=== PATIENT | male | born 1970 | race Caucasian/White ===

== ENCOUNTER 2023-10-06 07:26 | Outpatient (OUT) | payer OTHER, SELFPAY ==
--- NOTE | 2023-10-06 | ECG_ITS ---
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
[2023-10-06 08:13] LABS: Hematocrit 42.2 % (42.0-54.0); Hemoglobin 13.9 g/dL (14.0-18.0); Mean Corpuscular HGB Conc 32.9 g/dL (29.9-35.2); Mean Corpuscular Hemoglobin 31.4 pg (25.9-34.0); Mean Corpuscular Volume 95.3 fL (80.0-94.0); Mean Platelet Volume 9.3 fL (9.5-13.5); Platelet Count 274 10^3/uL (150-450); Red Blood Count 4.43 10^6/uL (4.70-6.10); Red Cell Distribution Width 12.1 % (11.0-15.0)
[2023-10-06 09:26] LABS: Estimated Average Glucose 114 mg/dL; Glycohemoglobin A1C 5.6 % (4.5-6.2)
[2023-10-06 10:23] LABS: Alanine Aminotransferase 29 U/L (16-63); Albumin Globulin Ratio 0.9; Albumin Level 3.7 g/dL (3.4-5.0); Alkaline Phosphatase 59 U/L (46-116); Anion Gap 6.9; Aspartate Amino Transferase 18 U/L (15-37); BUN Creatinine Ratio 17.3; Bilirubin Total 0.6 mg/dL (0.2-1.0); Carbon Dioxide 33.1 mmol/L (21.0-32.0); Chloride 103 mmol/L (98-107); Estimated GFR (African America >60 (>=60); Estimated GFR (Non-African Ame >60 (>=60); Glucose 81 mg/dL (74-106); Sodium 139 mmol/L (136-145); Total Protein 7.7 g/dL (6.4-8.2)
== END 2023-10-06 07:27 | disposition home or self-care (01) ==
PROVIDERS: Family Provider Family Medicine
DX: R55 Syncope and collapse (principal)
CPT/HCPCS: 36415; 80053; 83036; 85027; 93005

== ENCOUNTER 2023-10-08 17:30 | Emergency (ER) | payer OTHER, SELFPAY ==
[2023-10-08 17:33] VITALS: BP 146/94; PULSE 59; RESP 18; TEMP 36.8; O2SAT 98; BMI 22.8
--- NOTE | 2023-10-08 18:08 | CT_ITS ---
The [address] [address] Patient Name: JOSE FONTENOT MRN: [id number] date: 1970 Sex: M Assigned Patient Location: ER Current Patient Location: Accession/Order Number: [id number] Exam Date: 10/08/2023 18:15 Report Date: 10/08/2023 18:54 At the request of: ANTONIO MCCOLLUM Procedure: CT head/brain wo con EXAM: CT head/brain wo con HISTORY: headache COMPARISON: None TECHNIQUE: Axial CT scans through the head were obtained without IV contrast administration. Dose reduction techniques were achieved by using: automated exposure control and/or adjustment of mA and /or kV according to patient size and/or use of iterative reconstruction technique. FINDINGS: There is no evidence of acute intracranial hemorrhage or abnormal extra-axial fluid collection. No mass effect or midline shift is seen. There is no evidence of large acute territorial infarction. There is no hydrocephalus. There are scattered foci of mild low-attenuation in supratentorial white matter, likely represents chronic microvascular ischemia. To the limit of CT, the posterior fossa appears unremarkable. No definite acute fracture is identified. Soft tissues are unremarkable. The visualized orbits show no abnormality. There is mild mucosal thickening and a possible layering fluid within the partially visualized left maxillary sinus. Mastoid air cells are clear. CT/CT head/brain wo con IMPRESSION: No CT evidence of acute intracranial abnormality. Mild chronic microvascular ischemia. Mild mucosal thickening and a possible layering fluid within the partially visualized left maxillary sinus. If there is clinical suspicion for acute sinus disease, recommend paranasal sinus CT for further evaluation. Electronically authenticated by: SHIRLEY UNLU Date: 10/08/2023 18:54
--- NOTE | 2023-10-08 18:08 | ECG_ITS ---
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
--- NOTE | 2023-10-08 18:09 | ED.GENADUL1 ---
HPI - General Adult General Chief complaint: Weakness Stated complaint: near syncope headache cramping Time Seen by Provider: 10/08/23 17:34 Source: patient Mode of arrival: walk-in Limitations: no limitations History of Present Illness HPI narrative: Patient developed headache this afternoon and had cramping of the jaw and other areas - like muscles cramping up . He took OTC meds for his headache and it is gone now. he gets left sided headaches regularly - never associated with nausea, photophobia, visual changes or other symptoms. Last week the patient was standing, while his was trimming his celaya, and he got dizzy. He sat down and felt better. He stood again and got dizzy but this second time when he sat he passed out. was present and said it lasted less than a minute and the patient vomited while passed out. No seizure activity or post-syncopal confusion. No chest pain, palpitations, headache, blurred vision, nausea or shortness of breath preceding the event. He saw his PCP and had out-patient EKG and blood tests - CBC and CMP. He was also referred to [facility] in [place] - he has an appointment Oct 19. Related Data Home Medications Medication Instructions Recorded Confirmed No Known Home Medications 10/08/23 10/08/23 Allergies Allergy/AdvReac Type Severity Reaction Status Date / Time No Known Drug Allergies Allergy Verified 10/08/23 17:37 [facility] Social History Smoking status: Former smoker Exam Narrative Exam Narrative: Nurses notes and vital signs reviewed and patient is not hypoxic. afebrile General: Well-appearing and in no apparent distress. Skin: Warm, dry, no pallor noted. Head: Normocephalic, atraumatic. Eye: Pupils are equal, round and EOMI. No scleral icterus. No nystagmus Ears, Nose, Mouth, and Throat: TM are clear, no posterior oropharynx erythema or nasal mucosal hypertrophy, uvula is mid-line Oral mucosa is moist Cardiovascular: Regular Rate and Rhythm without murmur, gallop or rub. Respiratory: No accessory muscle use or respiratory distress. Lungs are clear to auscultation, no wheezing, rales or rhonchi Musculoskeletal: normal ROM, no calf or popliteal tenderness, no lower extremity edema/swelling GI: Abdomen is soft, non-distended. Normal bowel sounds. No tenderness to palpation. No rebound, guarding, or rigidity noted. Neurological: A&O x4. No cranial nerve dysfunction observed. No truncal ataxia. Moves all extremities. Sensation intact. Psychiatric: Cooperative and interactive. Normal mood and affect. Constitutional Vital Signs, click to edit/add: Last Vital Signs Temp 98.3 F 10/08/23 17:33 Pulse 59 L 10/08/23 17:33 Resp 18 10/08/23 17:33 BP 146/94 H 10/08/23 17:33 Pulse Ox 98 10/08/23 17:33 O2 Del Method Room Air 10/08/23 17:33 Course Vital Signs Vital signs: Vital Signs Temperature 98.3 F 10/08/23 17:33 Pulse Rate 59 L 10/08/23 17:33 Respiratory Rate 18 10/08/23 17:33 Blood Pressure 146/94 H 10/08/23 17:33 Pulse Oximetry 98 10/08/23 17:33 Oxygen Delivery Method Room Air 10/08/23 17:33 Temperature 98.3 F 10/08/23 17:33 Pulse Rate 59 L 10/08/23 17:33 Respiratory Rate 18 10/08/23 17:33 Blood Pressure 146/94 H 10/08/23 17:33 Pulse Oximetry 98 10/08/23 17:33 Oxygen Delivery Method Room Air 10/08/23 17:33 Medical Decision Making MDM Narrative Medical decision making narrative: Patient was placed on quality assurance monitor and EKG obtained. Blood drawn and sent for evaluation. He was sent for CT head. His headache already resolved. EKG normal. Head CT shows chronic changes but no acute abnormalities. Normal blood tests as well, as on 10/06/23. Patient informed of results. Recommend Neuro follow up as scheduled. PCP follow up as well. Encouraged patient to take OTC meds for pain. Discussed proper nutrition and hydration. Medical Records Medical records reviewed: Yes I reviewed the patient's medical records Medical records narrative: 2 days ago the patient had blood drawn. CBC and CMP were unremarkable. Lab Data Lab results reviewed: Yes I reviewed the patient's lab results Labs: Lab Results 10/08/23 Range/Units 17:45 WBC 5.3 (4.0-11.0) 10^3/uL RBC 4.27 L (4.70-6.10) 10^6/uL Hgb 13.7 L (14.0-18.0) g/dL Hct 40.2 L (42.0-54.0) % MCV 94.1 H (80.0-94.0) fL MCH 32.1 (25.9-34.0) pg MCHC 34.1 (29.9-35.2) g/dL RDW 12.0 (11.0-15.0) % Plt Count 276 (150-450) 10^3/uL MPV 9.3 L (9.5-13.5) fL Neut % (Auto) 49.9 (43.0-75.0) % Lymph % (Auto) 36.0 (20.5-60.0) % Glascock % (Auto) 11.2 (1.7-12.0) % Eos % (Auto) 2.1 (0.9-7.0) % Baso % (Auto) 0.6 (0.2-2.0) % Neut # (Auto) 2.7 (1.4-6.5) 10^3/uL Lymph # (Auto) 1.9 (1.2-3.8) 10^3/uL Glascock # (Auto) 0.6 (0.3-0.8) 10^3/uL Eos # (Auto) 0.1 (0.0-0.7) 10^3/uL Baso # (Auto) 0.0 (0.0-0.1) 10^3/uL Abs Immat Gran (auto) 0.01 (0.00-0.03) 10^3/uL Imm/Tot Granulo (auto) 0.2 (0.0-0.5) % Sodium 140 (136-145) mmol/L Potassium 3.8 (3.5-5.1) mmol/L Chloride 103 (98-107) mmol/L Carbon Dioxide 30.2 (21.0-32.0) mmol/L Anion Gap 10.6 BUN 17.0 (7.0-18.0) mg/dL Creatinine 1.12 (0.70-1.30) mg/dL Est GFR ( Amer) >60 (>=60) Est GFR (Non-Af Amer) >60 (>=60) BUN/Creatinine Ratio 15.2 Glucose 125 H (74-106) mg/dL Calcium 8.9 (8.5-10.1) mg/dL Total Bilirubin 0.3 (0.2-1.0) mg/dL AST 17 (15-37) U/L ALT 27 (16-63) U/L Alkaline Phosphatase 63 (46-116) U/L Total Protein 7.5 (6.4-8.2) g/dL Albumin 3.9 (3.4-5.0) g/dL Globulin 3.6 g/dL Albumin/Globulin Ratio 1.[address] scan - head: Radiologist's impression: ITS Impressions Head CT 10/08/23 18:08 IMPRESSION: No CT evidence of acute intracranial abnormality. Mild chronic microvascular ischemia. Mild mucosal thickening and a possible layering fluid within the partially visualized left maxillary sinus. If there is clinical suspicion for acute sinus disease, recommend paranasal sinus CT for further evaluation. Electronically authenticated by: SHIRLEY GUTIERREZ Date: 10/08/2023 18:54 ECG Data Attestation: I personally reviewed and interpreted this ECG as follows: Interpretation: EKG interpretation: Emergency Department physician interpretation. Normal sinus rhythm at 58bpm. Normal axis, normal intervals and no ST segment elevation or depression. Normal EKG. Discharge Plan Discharge Chief Complaint: Weakness Clinical Impression: Myalgia, Headache Patient Disposition: Home, Self-Care Time of Disposition Decision: 19:02 Prescriptions / Home Meds: No Action No Known Home Medications Instructions: Syncope (ED), Acute Headache (ED) Stand Alone Forms: Portal Instructions Referrals: Physician,Non-Staff, MD [Primary Care Provider] - 1 week
[2023-10-08 18:16] LABS: Basophils Percent Auto 0.6 % (0.2-2.0); Eosinophils Absolute Auto 0.1 10^3/uL (0.0-0.7); Eosinophils Percent Auto 2.1 % (0.9-7.0); Hematocrit 40.2 % (42.0-54.0); Hemoglobin 13.7 g/dL (14.0-18.0); Immature Granulocytes Abs Auto 0.01 10^3/uL (0.00-0.03); Immature Granulocytes Pct Auto 0.2 % (0.0-0.5); Lymphocytes Absolute Auto 1.9 10^3/uL (1.2-3.8); Mean Corpuscular HGB Conc 34.1 g/dL (29.9-35.2); Mean Corpuscular Hemoglobin 32.1 pg (25.9-34.0); Mean Corpuscular Volume 94.1 fL (80.0-94.0); Mean Platelet Volume 9.3 fL (9.5-13.5); Monocytes Absolute Auto 0.6 10^3/uL (0.3-0.8); Monocytes Percent Auto 11.2 % (1.7-12.0); Neutrophils Absolute Auto 2.7 10^3/uL (1.4-6.5); Neutrophils Percent Auto 49.9 % (43.0-75.0); Platelet Count 276 10^3/uL (150-450); Red Blood Count 4.27 10^6/uL (4.70-6.10); White Blood Count 5.3 10^3/uL (4.0-11.0)
[2023-10-08 18:30] LABS: Alanine Aminotransferase 27 U/L (16-63); Albumin Globulin Ratio 1.1; Albumin Level 3.9 g/dL (3.4-5.0); Alkaline Phosphatase 63 U/L (46-116); Anion Gap 10.6; Aspartate Amino Transferase 17 U/L (15-37); BUN Creatinine Ratio 15.2; Bilirubin Total 0.3 mg/dL (0.2-1.0); Calcium 8.9 mg/dL (8.5-10.1); Carbon Dioxide 30.2 mmol/L (21.0-32.0); Chloride 103 mmol/L (98-107); Estimated GFR (African America >60 (>=60); Estimated GFR (Non-African Ame >60 (>=60); Globulin 3.6 g/dL; Glucose 125 mg/dL (74-106); Potassium 3.8 mmol/L (3.5-5.1); Sodium 140 mmol/L (136-145); Total Protein 7.5 g/dL (6.4-8.2)
== END 2023-10-08 19:27 | disposition home or self-care (01) ==
PROVIDERS: Emergency Provider Emergency Medicine; Family Provider Family Medicine
DX: R51.9 Headache, unspecified (principal); M79.10 Myalgia, unspecified site; Z87.891 Personal history of nicotine dependence
CPT/HCPCS: 36415; 70450; 80053; 85025; 93005; 99285

== ENCOUNTER 2023-10-13 17:45 | Outpatient (OUT) | payer OTHER, SELFPAY ==
--- NOTE | 2023-10-13 | US_ITS ---
[address] [address] Patient Name: JOSE FONTENOT MRN: [id number] date: 1970 Sex: M Assigned Patient Location: Current Patient Location: Accession/Order Number: [id number] Exam Date: 10/13/2023 18:20 Report Date: 10/14/2023 04:59 At the request of: NICK ROJO Procedure: US carotid duplex BI EXAMINATION: US carotid duplex BI HISTORY: syncope R55 COMPARISON: No relevant comparison available. TECHNIQUE: Duplex Doppler ultrasound analysis of carotid and vertebral arteries. . Bilateral carotid arterial duplex examination was performed using B-mode, color flow and spectral analysis. Carotid stenosis is reported according to validated velocity parameters, similar to NASCET criteria. FINDINGS: RIGHT CAROTID ARTERY: Mild plaque without significant stenosis. RIGHT VERTEBRAL: Antegrade flow. Subclavian: PSV: 117.8 cm/s EDV: 11.1 cm/s CCA: Prox: PSV: 83.8 cm/s EDV: 11.1 cm/s Mid: PSV: 87.1 cm/s EDV: 22.4 cm/s Distal: PSV: 79.0 cm/s EDV: 30.5 cm/s BULB: PSV: 68.5 cm/s EDV: 21.9 cm/s ICA: Prox: PSV: 68.5 cm/s EDV: 27.0 cm/s Mid: PSV: 78.8 cm/s EDV: 34.8 cm/s Distal: PSV: 73.6 cm/s EDV: 33.5 cm/s ECA: PSV: 84.0 cm/s EDV: 11.5 cm/s VERTEBRAL: PSV: 34.8 cm/s EDV: 12.0 cm/s ICA/CCA ratio: PSV: 0.9 EDV: 1.6 LEFT CAROTID ARTERY: Mild plaque without significant stenosis. LEFT VERTEBRAL: Antegrade flow. Subclavian: PSV: 106.4 cm/s EDV: 0.0 cm/s CCA: Prox: PSV: 88.7 cm/s EDV: 25.7 cm/s Mid: PSV: 106.4 cm/s EDV: 32.1 cm/s Distal: PSV: 91.9 cm/s EDV: 25.7 cm/s BULB: PSV: 80.6 cm/s EDV: 33.7 cm/s ICA: Prox: PSV: 62.5 cm/s EDV: 26.5 cm/s Mid: PSV: 79.8 cm/s EDV: 37.5 cm/s Distal: PSV: 93.9 cm/s EDV: 45.3 cm/s ECA: PSV: 90.7 cm/s EDV: 15.5 cm/s VERTEBRAL: PSV: 36.2 cm/s EDV: 12.7 cm/s ICA/CCA ratio: PSV: 0.9 EDV: 1.4 US/US carotid duplex BI IMPRESSION: 1. 0-49% flow stenosis within the right left carotid arteries. 2. Mild atherosclerotic disease. Electronically authenticated by: NEWTON QUINN Date: 10/14/2023 04:59
== END 2023-10-13 17:46 | disposition home or self-care (01) ==
LOC: US 17:46
PROVIDERS: Family Provider Family Medicine; PCP Family Medicine; Visit Provider Family Medicine
DX: R55 Syncope and collapse (principal)
CPT/HCPCS: 93880

== ENCOUNTER 2024-04-22 16:06 | Outpatient (OUT) | payer OTHER, SELFPAY ==
[2024-04-22 16:17] LABS: Hematocrit 41.1 % (42.0-54.0); Hemoglobin 14.1 g/dL (14.0-18.0); Mean Corpuscular HGB Conc 34.3 g/dL (29.9-35.2); Mean Corpuscular Volume 93.4 fL (80.0-94.0); Mean Platelet Volume 9.2 fL (9.5-13.5); Platelet Count 248 10^3/uL (150-450); Red Cell Distribution Width 12.3 % (11.0-15.0); White Blood Count 6.2 10^3/uL (4.0-11.0)
[2024-04-22 16:42] LABS: Alanine Aminotransferase 27 U/L (16-63); Albumin Globulin Ratio 1.2; Alkaline Phosphatase 73 U/L (46-116); Anion Gap 10.1; Aspartate Amino Transferase 17 U/L (15-37); BUN Creatinine Ratio 9.6; Bilirubin Total 0.9 mg/dL (0.2-1.0); Calcium 9.1 mg/dL (8.5-10.1); Carbon Dioxide 30.7 mmol/L (21.0-32.0); Chloride 97 mmol/L (98-107); Chol HDL Ratio 3.4; Cholesterol 261 mg/dL (<=200); Estimated GFR (African America >60 (>=60); Estimated GFR (Non-African Ame >60 (>=60); Globulin 3.4 g/dL; Glucose 79 mg/dL (74-106); HDL Cholesterol 77 mg/dL (40-60); Potassium 3.8 mmol/L (3.5-5.1); Sodium 134 mmol/L (136-145); Total Protein 7.4 g/dL (6.4-8.2); Triglycerides 69 mg/dL (<=150); VLDL CHOLESTEROL 13.8 mg/dL
== END 2024-04-22 16:07 | disposition home or self-care (01) ==
LOC: LAB 16:06
PROVIDERS: Family Provider Family Medicine; PCP Nurse Practitioner; Visit Provider Nurse Practitioner
DX: I10 Essential (primary) hypertension (principal); Z13.6 Encounter for screening for cardiovascular disorders
CPT/HCPCS: 36415; 80053; 80061; 85027

== ENCOUNTER 2025-06-17 09:50 | Outpatient (OUT) | payer OTHER, SELFPAY ==
--- OUTSIDE RECORDS SUMMARY | 2024-10-31 13:15 | XMS_ITS ---
Author Organization [facility] vices Address [address] [place], [place] [id number] Care Team Providers Care Demographer Name Role Phone Kassandra Miller Primary Care Provider REASON FOR VISIT 6 mo HTN Social History Sex Assigned At : Social History Observation Description Sex Assigned At Male Encounters Encounter Location Date Provider Diagnosis Main [address] [place], [place] [id number] 10/31/2024 Kassandra Miller Plan Of Treatment Next Appt Details Provider Name:Kassandra espinoza, 12/11/2025 06:00:00 PM, [address] [place], [id number], Progress Notes * Ga BLACKMONDOB:1970 ([age] yo M)Acc No.[id number]:10/31/2024 Medical Note Patient: Ga JACK Provider: DENISE Bianchi :1970 A ge:54 Y S ex:Male Date:10/31/2024 Address:[address] [place] [id number] Subjective: * Chief Complaints: * 1 . 6 mo HTN. * Medical History: Objective: * Vitals: Assessment: Plan: * Treatment: * Billing Information: * Visit Code: * Procedure Codes: * Electronic signature of DENISE Oropeza on 06/17/2025 at 09:54 AM EDT Sign off status: Pending * Provider: DENISE Bianchi Date: 0 10/31/2024 Generated for Michael hernandez/Venkatesh/Dontrell on: 1 09:54 AM EDT
--- OUTSIDE RECORDS SUMMARY | 2025-05-04 12:15 | XMS_ITS ---
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 Bus Trolley Name Role Phone Kassandra Miller Primary Care Provider REASON FOR VISIT HTN Social History Sex Assigned At : Social History Observation Description Sex Assigned At Male Encounters Encounter Location Date Provider Diagnosis Main [address] [place], [place] [id number] 05/04/2025 Kassandra Miller Plan Of Treatment Next Appt Details Provider Name:Kassandra espinoza, 12/11/2025 06:00:00 PM, [address], [phone], Progress Notes * Ga BLACKMONDOB:1970 ([age] yo M)Acc No.[id number]:05/04/2025 Medical Note Patient: Ga JACK Provider: DENISE Bianchi :1970 A ge:54 Y S ex:Male Date:05/04/2025 Address:[address] [place] [id number] Subjective: * Chief Complaints: * 1 . HTN. * Medical History: Objective: * Vitals: Assessment: Plan: * Treatment: * Billing Information: * Visit Code: * Procedure Codes: * Electronic signature of DENISE Oropeza on 06/17/2025 at 09:54 AM EDT Sign off status: Pending * Provider: DENISE Bianchi Date: 0 05/04/2025 Generated for Michael hernandez/Venkatesh/Dontrell on: 1 09:54 AM EDT
--- OUTSIDE RECORDS SUMMARY | 2025-06-12 14:00 | XMS_ITS ---
Author Organization [facility] vices Address [address] [place] [place] [id number] Care Team Providers Care Solid State Tester Name Role Phone Kassandra Miller Primary Care Provider Allergies No Known Allergies REASON FOR VISIT HTN Medications Medication SIG (Take, Route, Fr equency, Duration) Notes Start Date End Date Status Fish Oil 1000 MG 1 capsule Orally once daily Active Lisinopril 5 MG 1 tablet Orally Once a day; Duration: 90 days Active Social History Sex Assigned At : Social History Observation Description Sex Assigned At Male Vital Signs Temperature 98.0 degrees Fahrenheit 06/12/20 25 Weight 163 lbs 06/12/2025 Height 71 in 06/12/2025 BMI 22.73 kg/m2 06/12/2025 Blood pressure systolic 125 mm Hg 06/12/20 25 Blood pressure diastolic 73 mm Hg 025 Heart Rate 87 /min 06/12/2025 Respiratory Rate 18 /min 06/12/2025 Oximetry 97 % 06/12/2025 Weight-kg 73.94 kg 06/12/2025 Height-cm 180.34 cm 06/12/2025 Chris Das 025 05:52:01 PM EDT > Encounters Encounter Location Date Provider Diagnosis Main [address] [place] [id number] 06/12/2025 Kassandra Miller Essential hyperten zuleyma I10 ; BMI 22.0-22.9, adult Z68.22 and Screening for prostate cancer Z12.5 Assessments Encounter Date Diagnosis (ICD Code) Assessment Notes Treatment Notes Treatment Clinical Notes Section Notes 06/12/2025 Essential hypertension (ICD-10 - I10) HTN stable. Will continue current medications. Encouraged healthy diet and exercise. F/u 6 months & PRN 06/12/2025 BMI 22.0-22.9, adult (ICD-10 - Z68.22) 06/12/2025 Screening for prostate cancer (ICD-10 - Z12.5) Plan Of Treatment Treatment Notes Assessment Notes Essential hypertension HTN stable. Will continue current medications. Encouraged healthy diet and exercise. F/u 6 months & PRN Pending Test Test Name Order Date LIPID PANEL WITH REFLEX TO DIRECT LDL COMPREHENSIVE METABOLIC PANEL WITH GFR 0 06/12/2025 PSA, TOTAL, 3RD GENERATION ([facility] SCREEN) 0 06/12/2025 Next Appt Details Follow Up: 6 Months,prn, [place] son: f/u HTN Provider Name:Kassandra espinoza, 12/11/2025 06:00:00 PM, [address] [place] [address], [phone], Progress Notes * Ga BLACKMONDOB:1970 ([age] yo M)Acc No.[id number]:06/12/2025 Medical Note Patient: Ga JACK Provider: DENISE Bianchi :1970 A ge:55 Y S ex:Male Date:06/12/2025 Address:[address] [place], [place] [id number] Check In:05:47 PM EST Subjective: * Chief Complaints: * H [place] * HPI: H ypertension: Patient presents for follow-up of hypertension w hich was diagnosed years ago. Does not check BP outside the office. Denies chest pain, SOB, palpitations. * ROS: S ee HPI. * Medical History: * Surgical History: D enies Past Surgical History * Hospitalization/Major Diagno stic Procedure: Bowel Infection 09/1976 * Family History: F ather: . M other: , diagnosed with Hypertension, Diabetes. P aternal Grand Father: . P aternal Grand Mother: . M aternal Grand Father: . Maternal Grand Mother: , diagnosed with Heart Disease. B rother: alive. S ister: alive, diagnosed with Hypertension, Cancer. 1 brother(s) , 3 sister(s) . 1 son(s) , 2 daughter(s) - healthy. . Sister dx breast cancer. * Medications: T akingFish Oil 1000 MG Capsule 1 capsule Orally once daily Lisinopril 5 MG Tablet 1 tablet Orally Once a day Medication List reviewed and reconciled with the patientTaking Fish Oil 1000 MG Capsule 1 capsule Orally once daily Taking Lisinopril 5 MG Tablet 1 tablet Orally Once a day Medication List reviewed and reconciled with the patient * Allergies: N .K.D.A.no[Allergies Verified] Objective: * Vitals: T emp:98.0F, Wt:163lbs, Ht: 71 in, BMI:22.73Index, BP:125/73mm Hg, HR:87/min, RR:18/min, Pain scale:01-10, Oxygen sat %:97%, Wt-k.94 kg, Ht-cm: 180.34 cm, Body Surface Area: 1.92. Chris Das 06/12/2025 05:52:01 PM EDT >. * Examination: C QM Exceptions: Currently taking Aspirin: A spirin Use: N o G eneral Examination: General appearance: a lert, pleasant, well-nourished and in no acute distress. Heart: r egular rate and rhythm without murmurs, gallops, clicks or rubs. Lungs: c lear to auscultation bilaterally, with good air movement and no rales, rhonchi or wheezes. Abdomen: s oft with good bowel sounds, nontender, and no masses or hepatosplenomegaly. Psych: a lert and oriented x 3. Assessment: * Assessment: 1. E ssential hypertension - I10 (Primary) 2 . B UT 22.0-22.9, adult - Z68.22 3 . S creening for prostate cancer - Z12.5 Plan: * Treatment: 2. S creening for prostate cancer L AB: PSA, TOTAL, 3RD GENERATION ([facility] SCREEN) * Procedure Codes: 3 078F HTN DIAST BP < 320693O HTN SYST BP < 130 * Preventive Medicine: Counseling: C ommunication to patient: Counseling for nutrition provided Y es Counseling for physical activity provided Y es * Follow Up: 6 Months,prn (Reason: f/u HTN) * Billing Information: * Visit Code: 58951 Office Visit Est 20-29 minutes. * Procedure Codes: 3078F HTN DIAST BP < 80. 3074F HTN SYST BP < 130. * Sign off status: Completed true * Provider: DENISE Bianchi Date: 0 06/12/2025 Generated for Michael hernandez/Venkatesh/Jsitting on: 1 09:53 AM EDT History and Physical Notes * HPI (History of Present Illness) Category Sub-Category Detail Notes Category Not es Hypertension Patient presents for follow-up of hypertension which was diagnosed years ago Does not check BP outside the office. Denies chest pain, SOB, palpitations Examination Category Sub-Category Detail Notes Category Not es General Examination General appearance: alert, p leasant, well-nourished and in no acute distress Heart: regular rate and rhy thm without murmurs, gallops, clicks or rubs Lungs: clear to auscultatio n bilaterally, with good air movement and no rales, rhonchi or wheezes Abdomen: soft with good bowel sounds, nontender, and no masses or hepatosplenomegaly Psych: alert and oriented x 3 CQM Exceptions Currently taking Aspirin: Aspirin Use:: No
--- OUTSIDE RECORDS SUMMARY | 2025-06-17 09:54 | XMS_ITS | Clinical Summary ---
Author Organization [facility] Address [id number] [address] [place] [address] Care Team Providers Care Door Clamper Name Role Phone Dagoberto Melendrez MD Primary Care Provider [phone] Allergies No known active allergies Medications No known medications Active Problems Problem Noted Date Diagnosed Date Encounter for screening colonoscopy 07/08/2018 Family History Medical History Relation Name Comments No Known Problems Brother Colon cancer Father Parkinsonism Father Thyroid disease Father Heart disease Mother Hyperlipidemia Mother Hypertension Mother Kidney cancer Mother Skin cancer Mother No Known Problems Sister 1 No Known Problems Sister 2 No Known Problems Sister 3 Relation Name Status Comments Brother Alive Father (Age 88) Mother (Age 82) Sister 1 Alive Sister 2 Alive Sister 3 Alive Social History Tobacco Use Types Packs/Day Years Used Date Smoking Tobacco: Former Cigarettes 1 4 1 985 - 1988 Smokeless Tobacco: Never Alcohol Use Standard Drinks/Week Comments Yes 24 (1 standard drink = 0.6 oz pu re alcohol) Childcare Answer Date Recorded Childcare Unknown 02/23/2019 Employment Answer Date Recorded Employment Unknown 02/23/2019 Purpose - Life Answer Date Recorded Purpose and direction in life Unknown Sex and Gender Information Value Date Recorded Sex Assigned at Not on file Legal Sex Male 11:26 AM EDT Gender Identity Not on file Sexual Orientation Not on file Last Filed Vital Signs Vital Sign Reading Time Taken Comments Blood Pressure 104/62 07/16/2018 11:05 AM EDT Pulse 64 07/16/2018 11:05 AM EDT Temperature 36.4 C (97.5 F) 07/16/2018 10:03 AM EDT Respiratory Rate 18 07/16/2018 11:05 AM EDT Oxygen Saturation 97% 07/16/2018 11:05 AM EDT Inhaled Oxygen Concentration - - Weight 71.7 kg (158 lb) 07/16/2018 10:03 AM EDT Height 177.8 cm (5' 10 ) 07/16/2018 10:03 AM EDT Body Mass Index 22.67 07/16/2018 10:03 AM EDT Plan of Treatment Health Maintenance Due Date Last Done Comments Depression Screening 1980 Tobacco Screening 1980 Adult BMI Screening 1986 DTaP,Tdap and Td Vaccines (1 - Tdap) 1987 Zoster (Shingles) Vaccine (1 of 2) 2018 Influenza Vaccine 05/15/2025 Medical Devices Not on file Insurance [employer] Care Teams Door Clamper Relationship Specialty Start Date End Date Dagoberto Melendrez MD [address] [place] [address] PCP - General Family Medicine 06/28/18
--- OUTSIDE RECORDS SUMMARY | 2025-06-17 09:54 | XMS_ITS | Patient Health Record ---
Author Organization [facility] Address [address] [place], [place] [id number] Care Team Providers Care Vice President Safety Name Role Phone Tristonluz maria Kassandra Primary Care Provider Allergies No Known Allergies Reason For Referral No Information Medications Medication SIG (Take, Route, Fr equency, Duration) Notes Start Date End Date Status Fish Oil 1000 MG 1 capsule Orally once daily Active Lisinopril 5 MG 1 tablet Orally Once a day; Duration: 90 days Active Social History Tobacco Use: Social History Observation Description Date Details (start date - stop date) Never Smoker NA - NA Sex Assigned At : Social History Observation Description Sex Assigned At Male Tobacco Use/Smoking Question Answer Notes Tobacco use: nonsmoker patient enter ed data CAGE-AID Questionnaire (2018 Edition) Question Answer Notes Have you ever felt that you ought to cut down on your drinking or drug use? No patient entered data Have people annoyed you by c riticizing your drinking or drug use? No patient entered data Have you ever felt bad or gu ilty about your drinking or drug use? No patient entered data Have you ever had a drink or used drugs first thing in the morning to steady your nerves or to get rid of a hangover? No patient entered data CAGE-AID Score 0 Interpretation Negative PRAPARE Question Answer Notes Date Completed/Updated: 10/27/2024 diandra nt entered data What is your current housing situation? I have housing patient entered data Are you worried about losing your housing? No patient entered data What is the highest level of school that you have finished? 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 Check all that apply I do not have problems meeting my needs Has lack of transportation k ept you from medical appointments, meetings, work or from getting things needed for daily living? No How often do you see or talk to people that you care about and feel close to? (For example: talking to friends on the phone, visiting friends or family, going to restoration or club meetings) More than 5 times a week patient entered data How stressed are you? Stress is when someone feels tense, nervous, anxious, or can't sleep at night because their mind is troubled Not at all patient entered data In the past year have you sp ent more than 2 nights in a row in a group home, penitentiary, fpc center, or juvenile correctional facility? No patient entered willaims a Are you a refugee? No patient en tered data What country are you from? [place] pa tient entered data Do you feel physically and emotionally safe where you currently live? Yes patient entered data In the past year, have you b een afraid of your partner or ex-partner? No patient entered data PRAPARE Score: 0 Problems Problem Type SNOMED Code ICD Code Onset Dates Problem Status W/U Status Risk Notes Problem Essential hypertension (71794535) Essential hypertension (I10) Active confirmed Vital Signs Heart Rate 87 /min 06/12/2025 Daquan Das 06/12/2025 05:52:01 PM EDT > Temperature 98.0 degrees Fahrenheit 06/12/2025 Chris Coleman 06/12/2025 05:52:01 PM EDT > Respiratory Rate 18 /min 06/12/2025 Chris Das 06/12/2025 05:52:01 PM EDT > Oximetry 97 % 06/12/2025 Daquan Das 06/12/2025 05:52:01 PM EDT > Blood pressure diastolic 73 mm Hg 06/12/2025 Gregoria doneris, Chris 06/12/2025 05:52:01 PM EDT > Height-cm 180.34 cm 06/12/2025 Das, Daquan vando 06/12/2025 05:52:01 PM EDT > Weight-kg 73.94 kg 06/12/2025 Das, Ser vando 06/12/2025 05:52:01 PM EDT > Height 71 in 06/12/2025 Das, Ser vando 06/12/2025 05:52:01 PM EDT > Blood pressure systolic 125 mm Hg 06/12/2025 Vald ovsilke, Chris 06/12/2025 05:52:01 PM EDT > Weight 163 lbs 06/12/2025 Das, Daquan vando 06/12/2025 05:52:01 PM EDT > BMI 22.73 kg/m2 06/12/2025 Das, Daquan vando 06/12/2025 05:52:01 PM EDT > Encounters Encounter Location Date Provider Diagnosis Main [address] [place], [place] [id number] 10/27/2024 Kassandra Myerholtz Essential hyperten zuleyma I10 and BMI 23.0-23.9, adult Z68.23 [address] [place], [place] [id number] 06/12/2025 Kassandra Myerholtz Essential hyperten zuleyma I10 ; BMI 22.0-22.9, adult Z68.22 and Screening for prostate cancer Z12.5 [address] [place], [place] [id number] 10/06/2024 Kassandra Myerholtz Essential hyperten zuleyma I10 [address] [place], [place] [id number] 05/04/2025 Kassandra Myerholtz Assessments Encounter Date Diagnosis (ICD Code) Assessment Notes Treatment Notes Treatment Clinical Notes Section Notes 10/06/2024 Essential hypertension (ICD-10 - I10) 10/27/2024 Essential hypertension (ICD-10 - I10) HTN stable. Will continue current medications. Encouraged healthy diet and exercise. F/u 6 months & PRN 06/12/2025 Essential hypertension (ICD-10 - I10) HTN stable. Will continue current medications. Encouraged healthy diet and exercise. F/u 6 months & PRN 06/12/2025 BMI 22.0-22.9, adult (ICD-10 - Z68.22) 06/12/2025 Screening for prostate cancer (ICD-10 - Z12.5) 10/27/2024 BMI 23.0-23.9, adult (ICD-10 - Z68.23) Body Mass Index: Care Instructions material was published Plan Of Treatment Pending Test Test Name Order Date LIPID PANEL WITH REFLEX TO DIRECT LDL COMPREHENSIVE METABOLIC PANEL WITH GFR 0 06/12/2025 PSA, TOTAL, 3RD GENERATION ([facility] SCREEN) 0 06/12/2025 Next Appt Details Provider Name:Kassandra espinoza, 12/11/2025 06:00:00 PM, [address] [place], [place], [id number], Insurance Providers Payer Name Payer Address Payer Phone Subscriber Number Group Number Insured Name Patient Relationship to Insured Coverage Start Date Coverage End Date Medical [place] [address] [place] [phone] [id number] Ga Blackmon Self - patient is the insured Medical (General) History Medical History History ICD Code Essential hypertension I10 Hospitalization History Reason Date(Month/Year) Bowel Infection 09/1976
--- OUTSIDE RECORDS SUMMARY | 2025-06-17 09:54 | XMS_ITS | Clinical Summary ---
Author Organization [facility] Address [address] [place] [address] Care Team Providers Care Servicenow Administrator Name Role Phone Unavailable Primary Care Provider Unavailabl e Social History Tobacco Use Types Packs/Day Years Used Date Smoking Tobacco: Never Assessed Sex and Gender Information Value Date Recorded Sex Assigned at Not on file Legal Sex Male 7:35 PM EDT Gender Identity Not on file Sexual Orientation Not on file Last Filed Vital Signs Vital Sign Reading Time Taken Comments Blood Pressure 126/88 10/13/2019 12:00 PM EST Pulse - - Temperature - - Respiratory Rate - - Oxygen Saturation - - Inhaled Oxygen Concentration - - Weight 73.9 kg (163 lb) 10/13/2019 12:00 PM EST Height 177.8 cm (5' 10 ) 07/03/2020 12:00 PM EDT Body Mass Index 23.39 10/13/2019 12:00 PM EST Plan of Treatment Not on file
--- OUTSIDE RECORDS SUMMARY | 2025-06-17 09:54 | XMS_ITS | Encounter Summary ---
Author Organization [facility] Address [address] [place] [address] Phone Care Team Providers Care Set Rider Name Role Phone Unavailable Primary Care Provider Unavailabl e Encounter Details Date Type Department Care Team (Late st Contact Info) Description 10/19/2023 Scanned Document [facility] [address] [place] [id number] Scanning, Generic Provider Social History Tobacco Use Types Packs/Day Years Used Date Smoking Tobacco: Never Assessed Sex and Gender Information Value Date Recorded Sex Assigned at Male 10/22/2023 6:16 PM EST Legal Sex Unknown 10/19/2023 10:57 AM EST Gender Identity Male 10/22/2023 6:16 PM EST Sexual Orientation Straight 10/22/2023 6: 16 PM EST documented as of this encounter Plan of Treatment Not on file documented as of this encounter Visit Diagnoses Not on filedocumented in this encounter
--- OUTSIDE RECORDS SUMMARY | 2025-06-17 09:54 | XMS_ITS | Clinical Summary ---
Author Organization [facility] Address [address] [place] [address] Phone Care Team Providers Care Prosthetics Assistant Name Role Phone Unavailable Primary Care Provider Unavailabl e Social History Tobacco Use Types Packs/Day Years Used Date Smoking Tobacco: Never Assessed Sex and Gender Information Value Date Recorded Sex Assigned at Male 10/22/2023 6:16 PM EST Legal Sex Unknown 10/19/2023 10:57 AM EST Gender Identity Male 10/22/2023 6:16 PM EST Sexual Orientation Straight 10/22/2023 6: 16 PM EST Plan of Treatment Health Maintenance Due Date Last Done Comments CT Colonography 1968 Colonoscopy 1968 Colorectal Cancer Screening 1968 FIT-DNA (Cologuard) 1968 FIT 1968 HIV Screening 1968 Lipid Panel 1968 Sigmoidoscopy 1968 Yearly Adult Physical 1968 MMR Vaccines (1 of 1 - Stand nadir series) 1969 Hepatitis C Screening 1986 Hepatitis B Vaccines (1 of 3 - 19+ 3-dose series) 1987 Cervical Cancer Screening 1989 HPV/Cotest 1989 Pap Smear 1989 DTaP/Tdap/Td Vaccines (1 - Tdap) 1990 PSA Prostate Cancer Screening 2018 Pneumococcal Vaccine (1 of 1 - PCV) 2018 Zoster Vaccines (1 of 2) 2018 COVID-19 Vaccine (1 - 2023-2 5 season) 2025 Influenza Vaccine (#1) 2025 HIB Vaccines Aged Out No longer eligi ble based on patient's age to complete this topic HPV Vaccines Aged Out No longer eligi ble based on patient's age to complete this topic Hepatitis A Vaccines Aged Out No long er eligible based on patient's age to complete this topic IPV Vaccines Aged Out No longer eligi ble based on patient's age to complete this topic Meningococcal Vaccine Aged Out No fred elroy eligible based on patient's age to complete this topic Rotavirus Vaccines Aged Out No longer eligible based on patient's age to complete this topic Insurance [employer] [place] [employer]
[2025-06-17 11:27] LABS: Alanine Aminotransferase 13 U/L (16-63); Albumin Globulin Ratio 1.1; Albumin Level 3.8 g/dL (3.4-5.0); Alkaline Phosphatase 59 U/L (46-116); Anion Gap 9.2; Aspartate Amino Transferase 15 U/L (15-37); Blood Urea Nitrogen 10.0 mg/dL (7.0-18.0); Calcium 9.0 mg/dL (8.5-10.1); Carbon Dioxide 31.4 mmol/L (21.0-32.0); Chloride 106 mmol/L (98-107); Cholesterol 215 mg/dL (<=200); Estimated GFR (African America >60 (>=60 mL/min/1.73m^2); Estimated GFR (Non-African Ame >60 (>=60 mL/min/1.73m^2); Globulin 3.5 g/dL; Glucose 86 mg/dL (74-106); HDL Cholesterol 48 mg/dL (40-60); Potassium 4.6 mmol/L (3.5-5.1); Sodium 142 mmol/L (136-145); Total Protein 7.3 g/dL (6.4-8.2); Triglycerides 81 mg/dL (<=150); VLDL CHOLESTEROL 16.2 mg/dL
== END 2025-06-17 09:51 | disposition home or self-care (01) ==
LOC: LAB 09:52
PROVIDERS: Family Provider Family Medicine; PCP Nurse Practitioner Family; Visit Provider Nurse Practitioner Family
DX: Z12.5 Encounter for screening for malignant neoplasm of prostate (principal); I10 Essential (primary) hypertension
CPT/HCPCS: 36415; 80053; 80061; G0103